=== PATIENT | male | born 1945 | race Caucasian/White ===

== ENCOUNTER 2017-03-21 10:20 | Outpatient (CLI) | payer OTHER ==
[2017-03-21 11:03] LABS: CALCIUM 9.2 mg/dL (8.5-10.3); CREATININE 0.9 mg/dL (0.6-1.2); POTASSIUM 3.9 mmol/L (3.5-5.0)
== END 2017-03-21 10:21 | disposition home or self-care (01) ==
LOC: LAB 10:20
PROVIDERS: ATTEND Internal Medicine Cardiovascular Disease
DX: I35.9 Nonrheumatic aortic valve disorder, unspecified (principal)
CPT/HCPCS: 36415; 80048; 84443

== ENCOUNTER 2021-02-14 07:58 | Outpatient (CLI) | payer OTHER ==
[2021-02-14 08:17] LABS: BASOPHILS % (AUTO) 0.5 %; EOSINOPHILS # (AUTO) 0.1 10^3/uL (0.0-0.7); EOSINOPHILS % (AUTO) 1.5 %; HGB - HEMOGLOBIN 17.1 g/dL (14.0-18.0); LYMPHOCYTES % (AUTO) 26.6 %; MEAN CORPUSCULAR HEMOGLOBIN 29.6 pg (27.0-31.0); MEAN CORPUSCULAR HGB CONC 32.9 g/dL (32.0-36.0); MEAN PLATELET VOLUME 9.4 fL (7.4-11.4); MONOCYTES # (AUTO) 0.8 10^3/uL (0.0-1.0); MONOCYTES % (AUTO) 10.8 %; NEUTROPHILS # (AUTO) 4.4 10^3/uL (1.5-6.6); NEUTROPHILS % (AUTO) 59.9 %; PLT - PLATELET COUNT 289 10^3/uL (130-450); RED BLOOD COUNT 5.78 10^6/uL (4.70-6.10); RED CELL DISTRIBUTION WIDTH 12.5 % (12.0-15.0); WHITE BLOOD COUNT 7.4 x10^3/uL (4.8-10.8)
[2021-02-14 08:38] LABS: ALBUMIN 4.5 g/dL (3.2-5.5); ALBUMIN/GLOBULIN RATIO 1.2 (1.0-2.2); ALKALINE PHOSPHATASE 64 IU/L (42-121); ALT ALANINE AMINOTRANSFERASE 25 IU/L (10-60); AST ASPARTATE AMINOTRANSFERASE 23 IU/L (10-42); BILIRUBIN,TOTAL 0.8 mg/dL (0.2-1.0); BUN - BLOOD UREA NITROGEN 24 mg/dL (6-20); CALCIUM 9.3 mg/dL (8.5-10.3); CARBON DIOXIDE - CO2 31 mmol/L (21-32); CHLORIDE 95 mmol/L (101-111); CHOL/HDL RATIO 6.4 (<5.0); CHOLESTEROL 338 mg/dL; GFR - MDRD 73 (>89); GLUCOSE 109 mg/dL (70-100); HDL CHOLESTEROL 53 mg/dL; LDL CHOLESTEROL,CALCULATED 250 mg/dL; LDL/HDL RATIO 4.7 (<3.6); POTASSIUM 3.8 mmol/L (3.5-5.0); SODIUM 137 mmol/L (135-145); TOTAL PROTEIN 8.4 g/dL (6.7-8.2); TRIGLYCERIDES 174 mg/dL; VLDL CHOLESTEROL 35 mg/dL
== END 2021-02-14 07:59 | disposition home or self-care (01) ==
LOC: LAB 07:58
PROVIDERS: ATTEND Internal Medicine
DX: I10 Essential (primary) hypertension (principal); Z12.5 Encounter for screening for malignant neoplasm of prostate
CPT/HCPCS: 36415; 80053; 80061; 83721; 84153; 85025

== ENCOUNTER 2021-06-20 16:00 | Outpatient (CLI) | payer OTHER | END 2021-06-20 16:01 | disposition short-term general hospital (02) | LOC: EMS 16:00 | DX: R07.9 Chest pain, unspecified (principal); R06.02 Shortness of breath | CPT/HCPCS: A0425; A0427 ==

== ENCOUNTER 2021-08-03 12:13 | Outpatient (CLI) | payer OTHER | END 2021-08-03 12:14 | disposition home or self-care (01) | LOC: LAB 12:13 | PROVIDERS: ATTEND Surgery | DX: Z01.812 Encounter for preprocedural laboratory examination (principal); R13.10 Dysphagia, unspecified; Z20.822 Contact with and (suspected) exposure to COVID-19 ==

== ENCOUNTER 2021-08-04 10:54 | Day surgery (SDC) | payer OTHER ==
[2021-08-04] MEDS ORDERED: LACTATED RINGERS 1,000 ML IV ONE (11:06)
--- NOTE | 2021-08-04 11:16 | ANESTHESIA ---
Pre-Anesthesia VS, & Labs - Diagnosis Trouble swallowing - Procedure EGD w/biopsies - NPO >8 hours - Lab Results Lab results reviewed: Yes Home Medications and Allergies Allergies/Adverse Reactions: Allergies Allergy/AdvReac Type Severity Reaction Status Date / Time Penicillins Allergy Unknown Verified 08/03/21 12:50 Anes History & Medical History - Anesthetic History Anesthesia Complications: reports: No previous complications Family history of Anesthesia Complications: Denies Family history of Malignant Hyperthermia: Denies - Medical History Cardiovascular: reports: Hypertension, Arrhythmia, Valve disorder, Other Pulmonary: reports: Shortness of breath Gastrointestinal: reports: Other Urinary: reports: None Musculoskeletal: reports: Osteoarthritis Endocrine/Autoimmune: reports: None Skin: reports: None - Surgical History Eyes Ears Nose Throat (EENT): reports: Tonsil/Adenoidectomy Cardiothoracic: reports: Vascular surgery, Other Orthopedic: reports: Other Exam General: Alert, Oriented x3, Cooperative Mouth Openin Fingerbreadth Neck Mobility: Normal Mallampati classification: I Thyromental Distance: 4-6 cm Respiratory: Lungs clear, Normal breath sounds, No respiratory distress Cardiovascular: Regular rate Neurological: Normal speech Mental/Cognitive Status: Alert/Oriented X3, Normal for patient Cognitive Status: Within normal limits Plan Anesthesia Type: Total IV Consent for Procedure(s) Verified and Reviewed: Yes Code Status: Attempt Resuscitation ASA classification: 3-Severe systemic disease Is this case an emergency?: No
[2021-08-04] MEDS ORDERED: MIDAZOLAM 2 MG/2 ML VIAL ONE (12:17)
[2021-08-04] MEDS ORDERED: LIDOCAINE-MPF 2% 5 ML VIAL ONE (12:18)
[2021-08-04] MEDS ORDERED: PROPOFOL 200 MG/20 ML VIAL IVP ONE ×2 (12:18→12:41)
[2021-08-04] MEDS ORDERED: LACTATED RINGERS 550 ML IV ONE (12:53)
[2021-08-04 14:49] VITALS: BP 135/65
--- NOTE | 2021-08-04 14:56 | ANESTHESIA POST OP EVALUATION ---
Anesthesia Post Eval - Post Anesthesia Eval Vitals: Last Vital Signs Temp 36.5 C 08/04/21 14:48 Pulse 62 08/04/21 14:48 Resp 15 08/04/21 14:48 BP 135/65 H 08/04/21 14:48 Pulse Ox 99 08/04/21 14:48 CV Function Including HR & BP: Stable Pain Control: Satisfactory Nausea & Vomiting: Negative Mental Status: Baseline Respiratory Status: Airway Patent Hydration Status: Satisfactory Anesthesia Complications: None
== END 2021-08-04 10:55 | disposition home or self-care (01) ==
LOC: SDS 10:54
PROVIDERS: ATTEND Surgery
PROC: 0DB38ZX Excision of Lower Esophagus, Via Natural or Artificial Opening Endoscopic, Diagnostic (ICD-10-PCS; principal; 2021-08-04 12:30)
DX: K22.2 Esophageal obstruction (principal); K44.9 Diaphragmatic hernia without obstruction or gangrene; R13.10 Dysphagia, unspecified; I10 Essential (primary) hypertension; H40.9 Unspecified glaucoma; I87.2 Venous insufficiency (chronic) (peripheral); Z79.82 Long term (current) use of aspirin; Z79.899 Other long term (current) drug therapy
CPT/HCPCS: 43239; J7120

== ENCOUNTER 2022-02-21 19:35 | Outpatient (CLI) | payer OTHER ==
[2022-02-21 22:43] LABS: BASOPHILS % (AUTO) 0.5 %; EOSINOPHILS # (AUTO) 0.2 10^3/uL (0.0-0.7); EOSINOPHILS % (AUTO) 2.3 %; HCT - HEMATOCRIT 48.1 % (42.0-52.0); HGB - HEMOGLOBIN 15.5 g/dL (14.0-18.0); LYMPHOCYTES # (AUTO) 1.8 10^3/uL (1.5-3.5); LYMPHOCYTES % (AUTO) 28.1 %; MEAN CORPUSCULAR HEMOGLOBIN 29.5 pg (27.0-31.0); MEAN CORPUSCULAR HGB CONC 32.2 g/dL (32.0-36.0); MEAN CORPUSCULAR VOLUME 91.4 fL (80.0-94.0); MEAN PLATELET VOLUME 9.4 fL (7.4-11.4); MONOCYTES # (AUTO) 0.6 10^3/uL (0.0-1.0); MONOCYTES % (AUTO) 9.8 %; NEUTROPHILS # (AUTO) 3.9 10^3/uL (1.5-6.6); NEUTROPHILS % (AUTO) 58.7 %; PLT - PLATELET COUNT 246 10^3/uL (130-450); RED BLOOD COUNT 5.26 10^6/uL (4.70-6.10); RED CELL DISTRIBUTION WIDTH 13.2 % (12.0-15.0); WHITE BLOOD COUNT 6.6 x10^3/uL (4.8-10.8)
[2022-02-21 22:48] LABS: BILIRUBIN,TOTAL 0.6 mg/dL (0.2-1.0); CALCIUM 9.1 mg/dL (8.5-10.3); CREATININE 0.9 mg/dL (0.6-1.2); POTASSIUM 4.4 mmol/L (3.5-5.0); TOTAL PROTEIN 8.2 g/dL (6.7-8.2)
[2022-02-21 22:49] LABS: THYROID STIMULATING HORMONE 1.97 uIU/mL (0.34-5.60)
[2022-02-21 22:51] LABS: BILIRUBIN,URINE NEGATIVE (NEGATIVE); CLARITY,URINE CLEAR (CLEAR); GLUCOSE, URINE (UA) NEGATIVE (NEGATIVE); KETONES,URINE (UA) NEGATIVE (NEGATIVE); LEUKOCYTE ESTERASE, URINE LARGE (NEGATIVE); NITRITE,URINE POSITIVE (NEGATIVE); OCCULT BLOOD,URINE SMALL (NEGATIVE); PROTEIN,URINE NEGATIVE (NEGATIVE); UROBILINOGEN,URINE 0.2 (NORMAL) E.U./dL (NORMAL)
[2022-02-21 22:52] LABS: BACTERIA,URINE Few /HPF (None Seen); RBC,URINE 0-5 /HPF (0-5); SQUAMOUS EPITHELIAL CELL,UR RARE Squamous (<= Few); WBC,URINE >25 /HPF (0-3)
== END 2022-02-21 19:36 | disposition home or self-care (01) ==
LOC: LAB 19:35
PROVIDERS: ATTEND Ophthalmology
DX: Z01.812 Encounter for preprocedural laboratory examination (principal); H25.11 Age-related nuclear cataract, right eye; I10 Essential (primary) hypertension; R61 Generalized hyperhidrosis; N40.1 Benign prostatic hyperplasia with lower urinary tract symptoms; Z20.822 Contact with and (suspected) exposure to COVID-19
CPT/HCPCS: 36415; 80053; 81001; 84153; 84443; 85025; 87086

== ENCOUNTER 2022-08-15 08:52 | Outpatient (CLI) | payer OTHER | END 2022-08-15 08:53 | disposition home or self-care (01) | LOC: LAB 08:52 | PROVIDERS: ATTEND Ophthalmology | DX: Z01.812 Encounter for preprocedural laboratory examination (principal); H25.12 Age-related nuclear cataract, left eye; Z20.822 Contact with and (suspected) exposure to COVID-19 ==

== ENCOUNTER 2022-08-16 06:49 | Day surgery (SDC) | payer OTHER ==
[~2022-08-16 06:49] MED LIST: CYCLOPENTOLATE 1% OPHTH DROPS 2 ML ONE; KETOROLAC 0.45% OPHTH DROPS ONE; PHENYLEPHRINE 2.5% OPHTH 2 ML DROPS ONE; PROPARACAINE 0.5% OPHTH DROPS 15 ML ONE
[2022-08-16] MEDS ORDERED: LACTATED RINGERS 1,000 ML IV ONE ×2 (07:01→09:57)
--- NOTE | 2022-08-16 07:17 | ANESTHESIA ---
Pre-Anesthesia VS, & Labs - Diagnosis L nuclear cataract - Procedure L cataract extraction w/IOL Vital Signs: Temp Pulse Resp BP Pulse Ox O2 Flow Rate 36.9 C 65 18 151/80 H 98 08/16/22 07:02 08/16/22 07:02 08/16/22 07:02 08/16/22 07:02 08/16/22 07:02 Height: 5 ft 8 in Weight (kg): 87 kg Body Mass Index: 29.1 BMI Classification: Overweight - NPO >8 hours Home Medications and Allergies Home Medications: Ambulatory Orders No Known Home Medications 08/16/22 Allergies/Adverse Reactions: Allergies Allergy/AdvReac Type Severity Reaction Status Date / Time Penicillins Allergy Unknown Verified 08/04/21 11:23 Anes History & Medical History - Anesthetic History Anesthesia Complications: reports: No previous complications Family history of Anesthesia Complications: Denies - Medical History Cardiovascular: reports: Hypertension, Valve disorder, Other Pulmonary: reports: Shortness of breath Gastrointestinal: reports: None Urinary: reports: Benign prostate hypertrophy Neuro: reports: None, Tremors Musculoskeletal: reports: None Endocrine/Autoimmune: reports: None Skin: reports: None Smoking Status: Former smoker (quit 40 years ago) - Surgical History General: reports: EGD Eyes Ears Nose Throat (EENT): reports: Tonsil/Adenoidectomy Cardiothoracic: reports: Valve replacement Orthopedic: reports: Other Exam General: Alert, Oriented x3 Dental: WNL Mouth Openin Fingerbreadth Neck Mobility: Normal Mallampati classification: II Thyromental Distance: 4-6 cm Plan Anesthesia Type: MAC Consent for Procedure(s) Verified and Reviewed: No Code Status: Attempt Resuscitation ASA classification: 3-Severe systemic disease Is this case an emergency?: No
[2022-08-16] MEDS ORDERED: MIDAZOLAM 2 MG/2 ML VIAL ONE (08:28)
--- NOTE | 2022-08-16 08:32 | ANESTHESIA ---
Pre-Anesthesia VS, & Labs - Diagnosis L nuclear cataract - Procedure L extraction cataract w/IOL Vital Signs: Temp Pulse Resp BP Pulse Ox O2 Flow Rate 36.9 C 65 18 151/80 H 98 08/16/22 07:02 08/16/22 07:02 08/16/22 07:02 08/16/22 07:02 08/16/22 07:02 Height: 5 ft 8 in Weight (kg): 87 kg Body Mass Index: 29.1 BMI Classification: Overweight Home Medications and Allergies Home Medications: Ambulatory Orders No Known Home Medications 08/16/22 No Known Home Medications 08/16/22 Allergies/Adverse Reactions: Allergies Allergy/AdvReac Type Severity Reaction Status Date / Time Penicillins Allergy Unknown Verified 08/04/21 11:23 Anes History & Medical History - Anesthetic History Anesthesia Complications: reports: No previous complications Family history of Anesthesia Complications: Denies Family history of Malignant Hyperthermia: Denies - Medical History Cardiovascular: reports: Hypertension, Valve disorder, Other Pulmonary: reports: Shortness of breath Gastrointestinal: reports: None Urinary: reports: Benign prostate hypertrophy Neuro: reports: None, Tremors Musculoskeletal: reports: None Endocrine/Autoimmune: reports: None Skin: reports: None Smoking Status: Former smoker (quit 40 years ago) - Surgical History General: reports: EGD Eyes Ears Nose Throat (EENT): reports: Tonsil/Adenoidectomy Cardiothoracic: reports: Valve replacement Orthopedic: reports: Other Exam Dental: WNL Mouth Openin Fingerbreadth Neck Mobility: Normal Mallampati classification: II Mental/Cognitive Status: Alert/Oriented X3, Normal for patient Cognitive Status: Within normal limits Plan Anesthesia Type: MAC Consent for Procedure(s) Verified and Reviewed: Yes Code Status: Attempt Resuscitation ASA classification: 3-Severe systemic disease Is this case an emergency?: No
[2022-08-16] MEDS ORDERED: TRIAMCIN/MOXIFLOX OPHTHALMIC 0.6 ML VIAL IO ONE ×2 (08:33→09:46)
[2022-08-16] MEDS ORDERED: EPINEPHrine 1 MG/ML AMP ONE (08:34)
[2022-08-16] MEDS ORDERED: BRIMONIDINE 0.2% OPHTH DROPS 5 ML ONE (08:34)
[2022-08-16] MEDS ORDERED: TIMOLOL 0.5% OPHTH DROPS ONE (08:34)
[2022-08-16] MEDS ORDERED: VANCOMYCIN OPHTH (TOPICAL) 10 MG/ML SYRINGE ONE (08:34)
[2022-08-16] MEDS ORDERED: BSS/LIDOCAINE/EPINEPHRINE 1 ML VIAL ONE (08:34)
[2022-08-16] MEDS ORDERED: EPINEPHrine 1 MG/ML AMP IR ONE (09:45)
[2022-08-16] MEDS ORDERED: BRIMONIDINE 0.2% OPHTH DROPS 5 ML OPTH ONE (09:45)
[2022-08-16] MEDS ORDERED: TIMOLOL 0.5% OPHTH DROPS OPTH ONE (09:46)
[2022-08-16] MEDS ORDERED: PROPARACAINE 0.5% OPHTH DROPS 15 ML EACHEYE ONE (09:46)
[2022-08-16] MEDS ORDERED: VANCOMYCIN OPHTH (TOPICAL) 10 MG/ML SYRINGE TOP ONE (09:46)
[2022-08-16] MEDS ORDERED: BSS/LIDOCAINE/EPINEPHRINE 1 ML SYRINGE IO ONE (09:46)
[2022-08-16] MEDS ORDERED: fentaNYL 100 MCG/2 ML VIAL ONE (09:53)
[2022-08-16 10:27] VITALS: BP 148/78
--- NOTE | 2022-08-16 10:30 | OPERATIVE REPORT ---
Operative Report - Other Other Information/Narrative: Date of Surgery: 08/16/22 Preop Dx: Visually significant cataract left eye. Cataract surgery was performed in the right eye on . Postop Dx: Same Procedure: Phacoemulsification with posterior chamber intraocular lens implant left eye Surgeon: Dr. Guillermo Pizarro Anesthesia: Monitored anesthesia care Complications: None Operative Indications: This is a 77-year-old M with progressive vision loss in the left eye due to 4+ nuclear sclerotic and vacuolar cataract. Best corrected visual acuity was 20/40 with glare to 20/200 vision in the left eye. Indications for surgery were: - Overall decrease in vision - Difficulty seeing words on a computer screen - Difficulty driving in low light or at night - Difficulty driving at night because of headlights from other vehicles - Difficulty with glare or bright lights in any situation The patient was consented at length concerning the risks and benefits of cataract surgery after which the patient expressed a desire to proceed with surgery. Operative Procedure: The patient was taken into OR#3 and placed under monitored anesthesia care. A surgical time-out was conducted confirming correct patient, correct procedure, and correct surgical site. The patient was given topical anesthesia and then prepped and draped in the usual sterile fashion. The eye was entered at the 6 and 3 oclock positions. Intracameral Shugarcaine was injected into the anterior chamber followed by a dispersive viscoelastic. A continuous-tear curvilinear capsulorhexis was performed. The nucleus was hydr odissected and phacoemulsified. The cortex was evacuated using automated infusion and aspiration. A cohesive viscoelastic was injected into the capsular bag and a 21.0 diopter intraocular lens was inserted into the bag. Infusion and aspiration were used to evacuate the viscoelastic materials from the eye. The wounds were hydrated and the eye inflated to physiologic pressure using balanced salt solution. Approximately 0.25ml of a mixture of triamcinolone and moxifloxacin was injected trans-sclerally into the vitreous in the inferotemporal quadrant using a 30 gauge cannula. An additional 0.55ml of a mixture of triamcinolone and moxifloxacin was injected subconjunctivally in the superior quadrant for infection and inflammation prophylaxis. Wound integrity was checked with Weck-Samantha sponges. The patient was taken from the operating room in good condition and given post-op instructions.
--- NOTE | 2022-08-16 13:40 | ANESTHESIA POST OP EVALUATION ---
Anesthesia Post Eval - Post Anesthesia Eval Vitals: Last Vital Signs Temp 36.9 C 08/16/22 10:15 Pulse 68 08/16/22 10:15 Resp 19 08/16/22 10:15 BP 148/78 H 08/16/22 10:15 Pulse Ox 97 08/16/22 10:15 O2 Flow Rate CV Function Including HR & BP: Stable Pain Control: Satisfactory Nausea & Vomiting: Negative Mental Status: Baseline Respiratory Status: Airway Patent Hydration Status: Satisfactory Anesthesia Complications: None
== END 2022-08-16 06:50 | disposition home or self-care (01) ==
LOC: SDS 06:49
PROVIDERS: ATTEND Ophthalmology
DX: H25.12 Age-related nuclear cataract, left eye (principal); N40.0 Benign prostatic hyperplasia without lower urinary tract symptoms; Z98.41 Cataract extraction status, right eye; Z87.891 Personal history of nicotine dependence
CPT/HCPCS: 66984; A9270; J3490; J7120

== ENCOUNTER 2023-12-04 09:29 | Emergency (ER) | payer OTHER ==
[2023-12-04 09:53] LABS: BASOPHILS # (AUTO) 0.1 10^3/uL (0.0-0.1); BASOPHILS % (AUTO) 0.7 %; EOSINOPHILS # (AUTO) 0.3 10^3/uL (0.0-0.7); EOSINOPHILS % (AUTO) 3.6 %; HCT - HEMATOCRIT 48.6 % (42.0-52.0); HGB - HEMOGLOBIN 16.1 g/dL (14.0-18.0); LYMPHOCYTES # (AUTO) 1.9 10^3/uL (1.5-3.5); LYMPHOCYTES % (AUTO) 26.6 %; MEAN CORPUSCULAR HEMOGLOBIN 30.4 pg (27.0-31.0); MEAN CORPUSCULAR HGB CONC 33.1 g/dL (32.0-36.0); MEAN CORPUSCULAR VOLUME 91.9 fL (80.0-94.0); MEAN PLATELET VOLUME 9.4 fL (7.4-11.4); MONOCYTES # (AUTO) 0.8 10^3/uL (0.0-1.0); MONOCYTES % (AUTO) 11.4 %; NEUTROPHILS # (AUTO) 4.1 10^3/uL (1.5-6.6); NEUTROPHILS % (AUTO) 56.9 %; PLT - PLATELET COUNT 302 10^3/uL (130-450); RED BLOOD COUNT 5.29 10^6/uL (4.70-6.10); RED CELL DISTRIBUTION WIDTH 12.3 % (12.0-15.0); WHITE BLOOD COUNT 7.3 x10^3/uL (4.8-10.8)
[2023-12-04 10:11] LABS: TROPONIN I HIGH SENSITIVITY 8.5 ng/L (2.3-19.7)
--- NOTE | 2023-12-04 10:21 | XRAY Report ---
PROCEDURE: Chest 1V INDICATIONS: CP TECHNIQUE: One view of the chest was acquired. COMPARISON: None. FINDINGS: Surgical changes and devices: Valve prosthesis. Lungs and pleura: No pleural effusions or pneumothorax. Lungs are clear. Mediastinum: Mediastinal contours appear normal. Top normal heart size. Bones and chest wall: No suspicious bony lesions. Overlying soft tissues appear unremarkable. IMPRESSION: No acute pulmonary process. Reviewed by: Darius Preston MD on 12/04/2023 10:20 AM PDT Approved by: Darius Preston MD on 12/04/2023 10:20 AM PDT Station ID: [id number]
--- NOTE | 2023-12-04 10:23 | ED Physician Documentation ---
PD HPI CHEST PAIN - Stated complaint Stated Complaint: NECK PX/ABNORMAL EKG - Chief complaint Chief Complaint: Cardiac - History obtained from History obtained from: Patient - Additional information Additional information: Patient is a 78-year-old male with a history of hypertension and aortic valve replacement 10 years ago presenting for evaluation of abnormal EKG. Patient states that he was having a disability exam last week at [facility] in [place] and they performed an EKG. He received a phone call this morning stating that he should come to the emergency department due to abnormalities on the EKG but he cannot recall what specifically were the issues with the EKG. He said last week he was having some episodes of chest pain and feeling lightheaded. Today he reports having left-sided neck pain since yesterday morning which she reports feels like a strained muscle as it hurts when he moves his neck in a certain way. He does not have chest pain today or in the last few days. Denies feeling short of air. No syncope or near syncope. No radiation of pain to arm or back. He takes medication for high blood pressure and has taken it this morning. He also takes baby aspirin. No abdominal symptoms. Denies leg swelling or pain. No recent travel or immobilization. He is scheduled to see cardiology through the [place] in 5 days. [facility] as that is been a long time since he has seen a flight agent since his aortic valve replacement. Review of Systems Constitutional: denies: Fever Cardiac: denies: Chest pain / pressure Respiratory: denies: Dyspnea GI: denies: Abdominal Pain, Vomiting : denies: Dysuria Musculoskeletal: reports: Neck pain. denies: Back pain Neurologic: denies: Headache PD PAST MEDICAL HISTORY - Past Medical History Past Medical History: Yes Cardiovascular: Hypertension, Valve disorder, Other Respiratory: Shortness of breath Neuro: None, Tremors Endocrine/Autoimmune: None GI: None : Benign prostate hypertrophy Musculoskeletal: None Derm: None - Past Surgical History Past Surgical History: Yes General: EGD Cardiovascular: Valve replacement HEENT: Tonsil/Adenoidectomy - Present Medications Home Medications: Ambulatory Orders Medication Instructions Recorded Confirmed Home Medications Unobtainable 12/04/23 12/04/23 [HOME MEDICATIONS UNOBTAINABLE] - Allergies Allergies/Adverse Reactions: Allergies Allergy/AdvReac Type Severity Reaction Status Date / Time Penicillins Allergy Unknown Verified 12/04/23 09:44 - Social History Does the pt smoke?: No Smoking Status: Never smoker Does the pt drink ETOH?: No Does the pt have substance abuse?: No - Immunizations Immunizations are current?: Yes - POLST Patient has POLST: No PD ED PE NORMAL - General General: Alert and oriented X 3, No acute distress, Well developed/nourished - HEENT HEENT: Atraumatic, Moist mucous membranes, Pharynx benign - Neck Neck: Supple, no meningeal sign, No bony TTP, Other (Tenderness and tightness over left trapezius; Good range of motion laterally but does report more discomfort When turning head towards left) - Cardiac Cardiac: RRR, Strong equal pulses, Other (Systolic murmur) - Respiratory Respiratory: No respiratory distress, Clear bilaterally - Abdomen Abdomen: Soft, Non tender, Non distended - Derm Derm: Warm and dry - Extremities Extremities: No edema, No calf tenderness / cord - Neuro Neuro: Normal speech Results - Vitals Vitals: Vital Signs - 24 hr 12/04/23 12/04/23 12/04/23 09:39 10:22 11:27 Temperature 36.8 C Heart Rate 66 58 L 56 L Respiratory 18 15 18 Rate Blood Pressure 206/116 H 154/93 H 126/75 O2 Saturation 98 92 96 12/04/23 11:32 Temperature Heart Rate 53 L Respiratory 16 Rate Blood Pressure 126/75 O2 Saturation 92 Oxygen O2 Source Room air - EKG (time done) 0943 EKG releavant findings:: EKG personally interpreted by author of this note. Relevant findings are: Rate 69, normal sinus rhythm, no STEMI, QTc 424 - Labs Labs: Laboratory Tests 12/04/23 12/04/23 09:40 09:40 WBC 7.3 RBC 5.29 Hgb 16.1 Hct 48.6 MCV 91.9 MCH 30.4 MCHC 33.1 RDW 12.3 Plt Count 302 MPV 9.4 Neut # (Auto) 4.1 Lymph # (Auto) 1.9 [place] # (Auto) 0.8 Eos # (Auto) 0.3 Baso # (Auto) 0.1 Absolute Nucleated RBC 0.00 Nucleated RBC % 0.0 Sodium 136 Potassium 4.2 Chloride 100 L Carbon Dioxide 30 Anion Gap 6.0 BUN 16 Creatinine 1.0 Estimated GFR (MDRD) 72 L Glucose 102 Calcium 9.9 Total Bilirubin 0.6 AST 19 ALT 19 Alkaline Phosphatase 71 Troponin I High Sens 8.5 Total Protein 8.2 Albumin 4.6 Globulin 3.6 Albumin/Globulin Ratio 1.3 Lipase 18 PD Medical Decision Making - ED course Complexity details: reviewed results, re-evaluated patient, d/w patient ED course: Pt presenting for evaluation of abnormal EKG by disability screening last week. Reports some episodes of pain in chest last week. None today or last few days. Does have L sided neck pain that is worse with movements and seems musculoskeletal in nature. No midline c spine tenderness and no trauma. Normal neuro exam. EKG reviewed and no acute ischemia. I did call clinic that sent pt in [place] and spoke to the PA who called pt (GEORGIE Alvarado?) - she had some difficulty in explaining her concerns on the EKg - "LVH and incomplete LBBB" primarily reading the interpretation it sounded like. She did say a physician reviewed it last week. unclear as to what prompted her to review it and call pt today. I asked for her to fax it and gave our fax number which she said she would do. HEALTH OFFICER also called number back after some time and no answer and left VM to try to fax again. EKG from clinic was never received. Pt without CP, SOA, or anginal symptoms here. CBC, chemistries, troponin unremarkable. Initial BP elevated but much better on rechecks. Doubt dissection. Chest XR clear. Pt has outpatient Cardiology appointment on December 08. Pt given copy of EKG and aware of need for close follow up as well as advised on strict return precautions. No symptoms to suggest PE. Departure - Departure Disposition: 01 Home, Self Care Clinical Impression: Neck pain Condition: Stable Instructions: ED Chest Pain NonCardiac, ED Neck Back Pain General Follow-Up: [facility] [Provider Group] Comments: Your testing today does not show signs of a heart attack. Please keep your appointment with the flight agent on Saturday. We were unable to get a copy of the EKG that was done last week that you were sent here for. I have given you a copy of your EKG today to take with your cardiology appointment. If at anytime you are developing any pain in your chest then please return to the emergency department for another evaluation. The pain in your neck is likely from a muscle strain. She did not want to take medications you can try ice versus heat on this area. Again I would recommend coming back to the emergency department if you have any worsening symptoms. Forms: PCP List Discharge Date/Time: 12/04/23 11:40
[2023-12-04 10:28] LABS: ALBUMIN 4.6 g/dL (3.2-5.5); ALBUMIN/GLOBULIN RATIO 1.3 (1.0-2.2); BILIRUBIN,TOTAL 0.6 mg/dL (0.2-1.0); CALCIUM 9.9 mg/dL (8.5-10.3); POTASSIUM 4.2 mmol/L (3.5-4.5); TOTAL PROTEIN 8.2 g/dL (6.4-8.9)
[2023-12-04 11:32] VITALS: BP 126/75
[2023-12-04 11:41] VITALS: O2SAT 92
== END 2023-12-04 11:40 | disposition home or self-care (01) ==
LOC: ED 09:29
DX: M54.2 Cervicalgia (principal); I10 Essential (primary) hypertension
CPT/HCPCS: 36415; 80053; 83690; 84484; 85025; 93005; 99284